=== PATIENT | female | born 1970 | race Caucasian/White ===

== ENCOUNTER 2017-09-04 11:40 | Emergency (ER) | payer BC ==
[~2017-09-04] VITALS: Ht 172.7 cm; Wt 104.3 kg
[2017-09-04 11:45] VITALS: BP_SYST 167
[2017-09-04] MEDS ORDERED: LORazepam 1 MG TABLET PO ONE (12:15)
[2017-09-04] MEDS ORDERED: LORazepam 2 MG/ML VIAL IM ONE (12:15)
[2017-09-04] MEDS ORDERED: ONDANSETRON 4 MG ODT TAB PO ONE (12:15)
[2017-09-04 12:20] LABS: BILIRUBIN,URINE NEGATIVE (NEGATIVE); BLOOD, URINE NEGATIVE (NEGATIVE); CLARITY/URINE CLEAR (CLEAR); COLOR,URINE YELLOW (YELLOW); GLUCOSE,URINE NEGATIVE (NEGATIVE); KETONES,URINE NEGATIVE (NEGATIVE); LEUKOCYTE ESTERASE ,URINE NEGATIVE (NEGATIVE); NITRITE, URINE NEGATIVE (NEGATIVE); PH,URINE 8.5 (5.0-8.0); PROTEIN URINE TRACE (NEGATIVE); UROBILINOGEN,URINE 0.2 (0.2-1.0)
[2017-09-04] MEDS ORDERED: LORazepam 2 MG/ML VIAL (FOR ER USE) ONE (12:28)
[2017-09-04 12:39] LABS: BACTERIA,URINE RARE /HPF (None Seen); MUCUS,URINE None Seen /LPF (None Seen); RBC,URINE 0-3 /HPF (0-3); WBC,URINE 0-3 /HPF (0-3)
[2017-09-04 12:51] LABS: BARBITURATE, URINE NEGATIVE (NEG <=200); BENZODIAZEPINE, URINE NEGATIVE (NEG <=150); CANNABINOID, URINE POSITIVE (NEG <=50); COCAINE, URINE NEGATIVE (NEG <=150); METHAMPHETAMINES SCREEN,URINE NEGATIVE (NEG <=500); OPIATE, URINE NEGATIVE (NEG <=100); PHENCYCLIDINE SCREEN,URINE NEGATIVE (NEG <=25); UR TRICYCLIC ANTIDEPRESSANTS POSITIVE (NEG <=300); URINE AMPHETAMINE NEGATIVE (NEG <=500); URINE METHADONE NEGATIVE (NEG <=200); URINE OXYCODONE SCREEN NEGATIVE (NEG <=100); URINE PROPOXYPHENE SCREEN NEGATIVE (NEG <=300)
[2017-09-04] MEDS ORDERED: METOCLOPRAMIDE HCL 10 MG/2 ML VIAL IVP ONE (13:15)
[2017-09-04] MEDS ORDERED: DIPHENHYDRAMINE INJ 50 MG/ML VIAL IM ONE (13:15)
[2017-09-04 13:26] LABS: BASOPHILS # (AUTO) 0.1 K/uL (0.0-0.2); BASOPHILS % (AUTO) 0.6 % (0.0-2.0); EOSINOPHILS % (AUTO) 0.1 % (0.0-4.0); HEMOGLOBIN 14.3 g/dL (12.0-16.0); LYMPHOCYTES # (AUTO) 1.6 K/uL (1.0-5.5); LYMPHOCYTES % (AUTO) 15.8 % (20.5-51.5); MEAN CORPUSCULAR HEMOGLOBIN 29 pg (27-31); MEAN CORPUSCULAR HGB CONC 34 % (32-36); MEAN CORPUSCULAR VOLUME 85 fL (79.0-98.0); MONOCYTES # (AUTO) 0.4 K/uL (0.0-1.0); MONOCYTES % (AUTO) 4.3 % (1.7-9.3); NEUTROPHILS # (AUTO) 7.8 K/uL (1.8-7.7); NEUTROPHILS % (AUTO) 79.2 % (40.0-70.0); PLATELET COUNT (AUTO) 332 K/uL (130-430); RED BLOOD CELL COUNT(AUTO) 4.93 MIL/uL (4.2-6.2); RED CELL DISTRIBUTION WIDTH 12.9 % (9.0-15.0); WHITE BLOOD COUNT (AUTO) 9.9 K/uL (4.8-10.8)
[2017-09-04] MEDS ORDERED: LORazepam 2 MG/ML VIAL (FOR ER USE) IVP ONE (13:30)
[2017-09-04] MEDS ORDERED: DIPHENHYDRAMINE INJ 50 MG/ML VIAL IVP ONE (13:30)
[2017-09-04 13:41] LABS: CALCIUM 9.3 mg/dL (8.4-11.0); CREATININE 1.15 mg/dL (0.55-1.30); POTASSIUM 4.3 mmol/L (3.5-5.1)
[2017-09-04 13:42] LABS: TOTAL BILIRUBIN 0.3 mg/dL (0.0-1.0)
[2017-09-04 15:44] VITALS: BP_SYST 129
== END 2017-09-04 15:44 | disposition home or self-care (01) ==
LOC: SED 11:40
DX: F41.9 Anxiety disorder, unspecified (principal); T40.7X5A Adverse effect of cannabis (derivatives), initial encounter; R03.0 Elevated blood-pressure reading, without diagnosis of hypertension; Z86.59 Personal history of other mental and behavioral disorders; Y92.89 Other specified places as the place of occurrence of the external cause
CPT/HCPCS: 36415; 80053; 80307; 81000; 85025; 93005; 96372; 96374; 96375; 99285; J1200; J2060; J2765; Q0162

== ENCOUNTER 2017-12-15 19:37 | Emergency (ER) | payer BC ==
[~2017-12-15] VITALS: Ht 172.7 cm; Wt 101.6 kg
[2017-12-15 19:54] VITALS: BP_SYST 146
[2017-12-15 20:28] LABS: BILIRUBIN,URINE NEGATIVE (NEGATIVE); BLOOD, URINE NEGATIVE (NEGATIVE); CLARITY/URINE CLEAR (CLEAR); COLOR,URINE YELLOW (YELLOW); GLUCOSE,URINE NEGATIVE (NEGATIVE); KETONES,URINE NEGATIVE (NEGATIVE); LEUKOCYTE ESTERASE ,URINE NEGATIVE (NEGATIVE); NITRITE, URINE NEGATIVE (NEGATIVE); PROTEIN URINE NEGATIVE (NEGATIVE); UROBILINOGEN,URINE 0.2 (0.2-1.0)
[2017-12-15 20:38] LABS: BARBITURATE, URINE NEGATIVE (NEG <=200); BENZODIAZEPINE, URINE NEGATIVE (NEG <=150); CANNABINOID, URINE NEGATIVE (NEG <=50); COCAINE, URINE NEGATIVE (NEG <=150); METHAMPHETAMINES SCREEN,URINE NEGATIVE (NEG <=500); OPIATE, URINE NEGATIVE (NEG <=100); PHENCYCLIDINE SCREEN,URINE NEGATIVE (NEG <=25); UR TRICYCLIC ANTIDEPRESSANTS NEGATIVE (NEG <=300); URINE AMPHETAMINE NEGATIVE (NEG <=500); URINE METHADONE NEGATIVE (NEG <=200); URINE OXYCODONE SCREEN NEGATIVE (NEG <=100); URINE PROPOXYPHENE SCREEN NEGATIVE (NEG <=300)
== END 2017-12-15 21:37 | disposition left against medical advice (07) ==
LOC: SED 19:37
DX: F41.0 Panic disorder [episodic paroxysmal anxiety] (principal); R06.02 Shortness of breath; R51 Headache; R11.0 Nausea; Z53.21 Procedure and treatment not carried out due to patient leaving prior to being seen by health care provider
CPT/HCPCS: 80307; 81003; 93005; 99281

== ENCOUNTER → 2018-05-17 | Emergency (ER) | payer BC ==
[~2018-05-17] VITALS: Ht 172.7 cm; Wt 104.3 kg
[~2018-05-17] MED LIST: DIPHENHYDRAMINE HCL 25 MG CAPSULE PO ONE; NACL 0.9% 1,000 ML IV ONE; PROCHLORPERAZINE EDISYLATE 10 MG/2 ML VIAL IVP ONE; SUMAtriptan SUCCINATE 6 MG/0.5 ML VIAL SUBCUT ONE
[2018-05-17 13:00] VITALS: BP_SYST 148
--- NOTE | 2018-05-17 13:05 | NUR ---
Patient to ER bed 6 to gown for evaluation. Side rails up. Report given to Zulay MENDEZ.
--- NOTE | 2018-05-17 13:10 | NUR ---
patient AOx4 from home with c/o RAMIREZ since yesterday. patient is taking her medication with mild improvement. patient states she has them often and can get anxiety aswell making the situation worse. patient states pain is 6/10 at this time. denies vision changes, blurred vision and gait changes. patient has the ability to walk. pain is worse with light. no other complaint or injury at this time.
--- NOTE | 2018-05-17 13:55 | NUR ---
ER PAC. Mills at bedside examining patient.
--- NOTE | 2018-05-17 14:00 | NUR ---
patient medicated and comfort measures applied
[2018-05-17 14:40] VITALS: BP_SYST 135
--- NOTE | 2018-05-17 14:40 | NUR ---
Patient given written and verbal discharge instructions and verbalizes understanding. ER MD discussed with patient the results and treatment provided. Patient in stable condition. ID arm band removed. IV catheter removed intact and dressing applied, no active bleeding. Rx of zofran, sumatriptan given. Patient educated on pain management and to follow up with PMD. Pain Scale 0/10. Opportunity for questions provided and answered. Medication side effect fact sheet provided.
== END | disposition still patient (30) ==
LOC: SED 12:46
DX: R51 Headache (principal); R03.0 Elevated blood-pressure reading, without diagnosis of hypertension
CPT/HCPCS: 96361; 96372; 96374; 99283; J0780; J3030; J7030; Q0163

== ENCOUNTER → 2018-05-17 | Emergency (ER) | payer BC ==
[~2018-05-17] VITALS: Ht 172.7 cm; Wt 104.3 kg
[2018-05-17 16:55] VITALS: BP_SYST 149
--- NOTE | 2018-05-17 17:00 | NUR ---
Patient triaged and placed in waiting room. VSS and patient appears in no acute distress at this time. Accompanied by family, awaiting available bed, and MD notified of need for MSE.
== END | disposition still patient (30) ==
LOC: SED 16:36
DX: F41.0 Panic disorder [episodic paroxysmal anxiety] (principal); R51 Headache; Z53.21 Procedure and treatment not carried out due to patient leaving prior to being seen by health care provider

== ENCOUNTER 2018-05-18 09:59 | Emergency (ER) | payer BC ==
[~2018-05-18] VITALS: Ht 172.7 cm; Wt 104.3 kg
[2018-05-18 10:02] VITALS: BP_SYST 160
[2018-05-18] MEDS ORDERED: ONDANSETRON HCL 4 MG/2 ML VIAL IVP ONE (10:45)
[2018-05-18] MEDS: NACL 0.9% 1,000 ML IV ONE ×2 (10:45→11:02)
[2018-05-18] MEDS ORDERED: LORazepam 2 MG/ML VIAL (FOR ER USE) IVP ONE ×2 (10:45→12:00)
[2018-05-18] MEDS ORDERED: DIPHENHYDRAMINE INJ 50 MG/ML VIAL IVP ONE ×2 (12:30)
[2018-05-18 13:22] VITALS: BP_SYST 139
== END 2018-05-18 13:22 | disposition home or self-care (01) ==
LOC: SED 09:59
DX: F41.0 Panic disorder [episodic paroxysmal anxiety] (principal); Z88.8 Allergy status to other drugs, medicaments and biological substances
CPT/HCPCS: 96374; 96375; 96376; 99284; J1200; J2060; J2405; J7030

== ENCOUNTER 2018-06-03 15:57 | Emergency (ER) | payer BC ==
[~2018-06-03] VITALS: Ht 172.7 cm; Wt 104.3 kg
[2018-06-03 16:15] VITALS: BP_SYST 156
[2018-06-03 17:10] LABS: BARBITURATE, URINE NEGATIVE (NEG <=200); BENZODIAZEPINE, URINE NEGATIVE (NEG <=150); CANNABINOID, URINE NEGATIVE (NEG <=50); COCAINE, URINE NEGATIVE (NEG <=150); METHAMPHETAMINES SCREEN,URINE NEGATIVE (NEG <=500); OPIATE, URINE NEGATIVE (NEG <=100); PHENCYCLIDINE SCREEN,URINE NEGATIVE (NEG <=25); UR TRICYCLIC ANTIDEPRESSANTS NEGATIVE (NEG <=300); URINE AMPHETAMINE NEGATIVE (NEG <=500); URINE METHADONE NEGATIVE (NEG <=200); URINE OXYCODONE SCREEN NEGATIVE (NEG <=100); URINE PROPOXYPHENE SCREEN NEGATIVE (NEG <=300)
[2018-06-03] MEDS ORDERED: DIPHENHYDRAMINE INJ 50 MG/ML VIAL IVP ONE (18:00)
[2018-06-03] MEDS ORDERED: ONDANSETRON HCL 4 MG/2 ML VIAL IVP ONE (18:00)
[2018-06-03] MEDS ORDERED: LORazepam 2 MG/ML VIAL (FOR ER USE) IVP ONE (18:00)
[2018-06-03 19:04] VITALS: BP_SYST 156
== END 2018-06-03 19:06 | disposition home or self-care (01) ==
LOC: SED 15:57
DX: F41.0 Panic disorder [episodic paroxysmal anxiety] (principal); R03.0 Elevated blood-pressure reading, without diagnosis of hypertension; F32.9 Major depressive disorder, single episode, unspecified; Z88.8 Allergy status to other drugs, medicaments and biological substances
CPT/HCPCS: 80307; 81025; 96374; 96375; 99284; J1200; J2060; J2405

== ENCOUNTER 2018-06-30 15:31 | Emergency (ER) | payer BC ==
[~2018-06-30] VITALS: Ht 172.7 cm; Wt 104.3 kg
[2018-06-30 15:34] VITALS: BP_SYST 159
--- NOTE | 2018-06-30 15:42 | NUR ---
Patient to ER bed 8 to gown for evaluation. Side rails up. Report given to Bhupinder MENDEZ.
--- NOTE | 2018-06-30 15:43 | NUR ---
Pt AAOx4 ambulated into ED c/o anxiety/panic attack with symptoms of headache, nausea, and epigastric pain. Pt denies SI. Pt denies taking medication for anxiety. No other injuries/complaints per pt/noted. Will continue to monitor.
[2018-06-30] MEDS ORDERED: LORazepam 2 MG/ML VIAL (FOR ER USE) IVP ONE (15:45)
[2018-06-30] MEDS ORDERED: DIPHENHYDRAMINE INJ 50 MG/ML VIAL IVP ONE (15:45)
[2018-06-30] MEDS ORDERED: NACL 0.9% 1,000 ML IV ONE (15:45)
--- NOTE | 2018-06-30 15:48 | NUR ---
ER LAURA Welch at bedside examining patient.
[2018-06-30 16:27] LABS: BARBITURATE, URINE NEGATIVE (NEG <=200); BENZODIAZEPINE, URINE NEGATIVE (NEG <=150); CANNABINOID, URINE NEGATIVE (NEG <=50); COCAINE, URINE NEGATIVE (NEG <=150); METHAMPHETAMINES SCREEN,URINE NEGATIVE (NEG <=500); OPIATE, URINE NEGATIVE (NEG <=100); PHENCYCLIDINE SCREEN,URINE NEGATIVE (NEG <=25); URINE AMPHETAMINE NEGATIVE (NEG <=500); URINE METHADONE NEGATIVE (NEG <=200); URINE OXYCODONE SCREEN NEGATIVE (NEG <=100)
[2018-06-30 16:28] LABS: UR TRICYCLIC ANTIDEPRESSANTS NEGATIVE (NEG <=300); URINE PROPOXYPHENE SCREEN NEGATIVE (NEG <=300)
[2018-06-30] MEDS ORDERED: KETOROLAC TROMETHAMINE 30 MG VIAL IVP ONE (17:15)
--- NOTE | 2018-06-30 17:53 | NUR ---
Toradol 60mg IVP administered. Pt tolerated well. No adverse reactions noted. Pt states she would like to rest before she gets discharged. Rebekah SANCHEZ notified and okayed. Will re-assess pain ~20min.
[2018-06-30 18:25] VITALS: BP_SYST 148
--- NOTE | 2018-06-30 18:25 | NUR ---
Patient given written and verbal discharge instructions and verbalizes understanding. ER [employer] Rebekah discussed with patient the results and treatment provided. Patient in stable condition. ID arm band removed. IV catheter removed intact and dressing applied, no active bleeding. No Rx given. Patient educated on pain management and to follow up with PMD. Pain Scale 0. Opportunity for questions provided and answered. Medication side effect fact sheet provided.
--- NOTE | 2018-06-30 18:25 | NUR ---
Note undone in ED - 06/30/18 at 1917 by [email or web address] Patient given written and verbal discharge instructions and verbalizes understanding. ER LAURA Welch discussed with patient the results and treatment provided. Patient in stable condition. ID arm band removed. No Rx given. Patient educated on pain management and to follow up with PMD. Pain Scale 0. Opportunity for questions provided and answered. Medication side effect fact sheet provided.
== END 2018-06-30 18:25 | disposition home or self-care (01) ==
LOC: SED 15:31
DX: F41.0 Panic disorder [episodic paroxysmal anxiety] (principal); R03.0 Elevated blood-pressure reading, without diagnosis of hypertension; F41.9 Anxiety disorder, unspecified; Z88.8 Allergy status to other drugs, medicaments and biological substances; Z98.51 Tubal ligation status
CPT/HCPCS: 80307; 81002; 81025; 96374; 96375; 99284; J1200; J1885; J2060; J7030

== ENCOUNTER 2018-10-30 16:01 | Emergency (ER) | payer BC ==
--- NOTE | 2018-10-30 16:15 | NUR ---
Patient to ER bed 6 to gown for evaluation. Side rails up. Report given to Zulay MENDEZ.
--- NOTE | 2018-10-30 16:28 | NUR ---
Raul garcia in ED - 10/30/18 at 1833 by SDEDTD Patient presented to ER with C/O panic attack. Patient A&Ox4, ambtientulatory to ER, arrived with Flores Sands
--- NOTE | 2018-10-30 16:28 | NUR ---
Patient presented to ER with C/O panic attack. Patient A&Ox4, ambulatory to ER, arrived with . Patient states she has been crying anxiety and panic attacks. Patient states she took home medication Vistiril with out relief, prompting ER visit
--- NOTE | 2018-10-30 16:30 | NUR ---
LULI Simon at bedside examining patient.
[2018-10-30] MEDS ORDERED: ONDANSETRON HCL 4 MG/2 ML VIAL IVP ONE (16:45)
[2018-10-30] MEDS ORDERED: LORazepam 2 MG/ML VIAL IVP ONE ×2 (16:45→17:30)
[2018-10-30] MEDS ORDERED: DIPHENHYDRAMINE INJ 50 MG/ML VIAL IVP ONE (16:45)
[2018-10-30] MEDS ORDERED: KETOROLAC TROMETHAMINE 30 MG VIAL IVP ONE (17:30)
== END 2018-10-30 18:30 | disposition home or self-care (01) ==
LOC: SED 16:01
DX: F41.0 Panic disorder [episodic paroxysmal anxiety] (principal); R51 Headache; F32.9 Major depressive disorder, single episode, unspecified; Z88.8 Allergy status to other drugs, medicaments and biological substances
CPT/HCPCS: 96374; 96375; 96376; 99283; J1200; J1885; J2060; J2405

== ENCOUNTER 2019-02-16 16:11 | Emergency (ER) | payer BC ==
[~2019-02-16] VITALS: Ht 172.7 cm; Wt 106.6 kg
[2019-02-16 16:25] VITALS: BP_SYST 164
[2019-02-16] MEDS ORDERED: ONDANSETRON HCL 4 MG/2 ML VIAL IVP ONE (17:00)
[2019-02-16] MEDS ORDERED: LORazepam 2 MG/ML VIAL IVP ONE ×2 (17:00→17:30)
[2019-02-16] MEDS ORDERED: DIPHENHYDRAMINE INJ 50 MG/ML VIAL IVP ONE ×2 (17:00→17:45)
[2019-02-16] MEDS ORDERED: KETOROLAC TROMETHAMINE 30 MG VIAL IVP ONE (17:00)
[2019-02-16 19:05] VITALS: BP_SYST 148
== END 2019-02-16 19:06 | disposition home or self-care (01) ==
LOC: SED 16:11
DX: J32.9 Chronic sinusitis, unspecified (principal); F41.0 Panic disorder [episodic paroxysmal anxiety]; F41.9 Anxiety disorder, unspecified; F32.9 Major depressive disorder, single episode, unspecified; Z88.8 Allergy status to other drugs, medicaments and biological substances
CPT/HCPCS: 96374; 96375; 96376; 99283; J1200; J1885; J2060; J2405

== ENCOUNTER 2020-06-20 18:10 | Emergency (ER) | payer BC, OTHER ==
[~2020-06-20] VITALS: Ht 172.7 cm; Wt 106.6 kg
[2020-06-20 18:14] VITALS: BP_SYST 160
[2020-06-20] MEDS ORDERED: ONDANSETRON HCL 4 MG/2 ML VIAL IVP ONE (18:45)
[2020-06-20] MEDS ORDERED: NACL 0.9% 1,000 ML IV ONE (18:45)
[2020-06-20] MEDS ORDERED: LORazepam 2 MG/ML VIAL IVP ONE (18:45)
[2020-06-20] MEDS ORDERED: DIPHENHYDRAMINE INJ 50 MG/ML VIAL IVP ONE (18:45)
[2020-06-20 18:53] LABS: BASOPHILS # (AUTO) 0.1 K/uL (0.0-0.2); BASOPHILS % (AUTO) 0.6 % (0.0-2.0); EOSINOPHILS % (AUTO) 0.1 % (0.0-4.0); HEMATOCRIT 37.8 % (36-48); HEMOGLOBIN 12.9 g/dL (12.0-16.0); LYMPHOCYTES # (AUTO) 1.4 K/uL (1.0-5.5); LYMPHOCYTES % (AUTO) 17.1 % (20.5-51.5); MEAN CORPUSCULAR HEMOGLOBIN 27 pg (27-31); MEAN CORPUSCULAR HGB CONC 34 % (32-36); MEAN CORPUSCULAR VOLUME 80 fL (79.0-98.0); MONOCYTES # (AUTO) 0.6 K/uL (0.0-1.0); MONOCYTES % (AUTO) 7.5 % (1.7-9.3); NEUTROPHILS # (AUTO) 6.2 K/uL (1.8-7.7); NEUTROPHILS % (AUTO) 74.7 % (40.0-70.0); PLATELET COUNT (AUTO) 319 K/uL (130-430); RED CELL DISTRIBUTION WIDTH 14.8 % (9.0-15.0); WHITE BLOOD COUNT (AUTO) 8.2 K/uL (4.8-10.8)
[2020-06-20 19:02] LABS: BILIRUBIN,URINE NEGATIVE (NEGATIVE); BLOOD, URINE NEGATIVE (NEGATIVE); CLARITY/URINE CLEAR (CLEAR); COLOR,URINE YELLOW (YELLOW); GLUCOSE,URINE NEGATIVE (NEGATIVE); KETONES,URINE NEGATIVE (NEGATIVE); LEUKOCYTE ESTERASE ,URINE NEGATIVE (NEGATIVE); NITRITE, URINE NEGATIVE (NEGATIVE); PROTEIN URINE NEGATIVE (NEGATIVE); UROBILINOGEN,URINE 0.2 (0.2-1.0)
[2020-06-20 19:05] LABS: CALCIUM 8.3 mg/dL (8.4-11.0); CREATININE 1.06 mg/dL (0.55-1.30); POTASSIUM 3.4 mmol/L (3.5-5.1)
[2020-06-20 19:11] LABS: ALBUMIN 3.8 g/dL (3.4-4.8); TOTAL BILIRUBIN 0.3 mg/dL (0.0-1.0)
[2020-06-20 20:30] VITALS: BP_SYST 125
== END 2020-06-20 20:30 | disposition home or self-care (01) ==
LOC: SED 18:10
DX: F41.0 Panic disorder [episodic paroxysmal anxiety] (principal); R11.10 Vomiting, unspecified; Z88.8 Allergy status to other drugs, medicaments and biological substances
CPT/HCPCS: 36415; 80053; 81003; 85025; 96374; 96375; 99284; J1200; J2060; J2405; J7030

== ENCOUNTER 2022-10-24 16:17 | Emergency (ER) | payer OTHER ==
[~2022-10-24] VITALS: Ht 172.7 cm; Wt 111.1 kg
[2022-10-24] MEDS ORDERED: LORazepam 1 MG TABLET PO ONE (16:30)
[2022-10-24 16:41] VITALS: BP_SYST 158; PULSE 96; RESP 24; TEMP 96.3; O2SAT 96
[2022-10-24] MEDS ORDERED: METOCLOPRAMIDE HCL 10 MG TABLET PO ONE (16:45)
[2022-10-24] MEDS ORDERED: DIPHENHYDRAMINE HCL 25 MG CAPSULE PO ONE (16:45)
[2022-10-24] MEDS ORDERED: BUSP10TA3 PO (16:50)
[2022-10-24] MEDS ORDERED: QUET25TA36 PO (16:50)
[2022-10-24] MEDS ORDERED: GABA-531 PO (16:50)
[2022-10-24] MEDS ORDERED: PARO40TA80 PO (16:50)
[2022-10-24] MEDS ORDERED: AMLO5TAB4 PO (16:50)
[2022-10-24] MEDS ORDERED: DIPHENHYDRAMINE INJ 50 MG/ML VIAL IM ONE (17:15)
[2022-10-24] MEDS ORDERED: METOCLOPRAMIDE HCL 10 MG/2 ML VIAL IVP ONE (17:15)
[2022-10-24] MEDS ORDERED: LORazepam 2 MG/ML VIAL IM ONE (17:15)
[2022-10-24 18:23] VITALS: BP_SYST 132; PULSE 92; TEMP 98.1; O2SAT 95
[2022-10-24 18:26] VITALS: RESP 18
== END 2022-10-24 18:23 | disposition home or self-care (01) ==
LOC: SED 16:17
DX: F41.0 Panic disorder [episodic paroxysmal anxiety] (principal); F41.9 Anxiety disorder, unspecified; R11.0 Nausea; I10 Essential (primary) hypertension; Z88.8 Allergy status to other drugs, medicaments and biological substances; Z79.899 Other long term (current) drug therapy
CPT/HCPCS: 99284; 96374; 96375; J1200; J2060; J2765; J8597; Q0163